=== PATIENT | male | born 1960 | race Asian ===

== ENCOUNTER 2020-06-30 19:04 | Emergency (ER) | payer SELFPAY ==
[~2020-06-30] VITALS: Ht 167.6 cm; Wt 79.5 kg
[2020-06-30] MEDS ORDERED: ketorolac tromethamine 15mg/ml inj. IM ONE (21:20)
[2020-06-30] MEDS ORDERED: orphenadrine citrate 60mg/2ml inj. IM ONE (21:20)
[2020-06-30] MEDS ORDERED: CYCL-1 PO (21:23)
[2020-06-30 21:50] VITALS: BP 144/85
[2020-06-30] MEDS ORDERED: cyclobenzaprine 10mg tablet PO ONE (22:10)
== END 2020-06-30 22:25 | disposition home or self-care (01) ==
LOC: ER 19:05
DX: M54.42 Lumbago with sciatica, left side (principal); M79.605 Pain in left leg; R20.0 Anesthesia of skin; Z79.899 Other long term (current) drug therapy
CPT/HCPCS: 96372; 99283; J1885

== ENCOUNTER 2025-01-28 17:08 | Emergency (ER) | payer OTHER ==
[~2025-01-28] VITALS: Ht 167.6 cm; Wt 84.4 kg
[~2025-01-28 17:08] MED LIST: CYCL-1 PO
[2025-01-28] MEDS ORDERED: IBUP-1985 PO (18:54)
[2025-01-28 18:59] VITALS: BP 134/86; PULSE 88; RESP 16; TEMP 98.5; O2SAT 98
== END 2025-01-28 19:00 | disposition home or self-care (01) ==
LOC: ER 17:09
DX: S20.219A Contusion of unspecified front wall of thorax, initial encounter (principal); V43.52XA Car driver injured in collision with other type car in traffic accident, initial encounter; Y92.410 Unspecified street and highway as the place of occurrence of the external cause; Y93.89 Activity, other specified; Y99.8 Other external cause status
CPT/HCPCS: 71045; 99283